=== PATIENT | female | born 1975 | race Caucasian/White ===

== ENCOUNTER 2018-07-29 12:05 | Emergency (ER) | payer OTHER ==
[~2018-07-29] VITALS: Ht 165.1 cm; Wt 107.8 kg
[~2018-07-29 12:05] MED LIST: FERR140T3 PO; IPRA14.76; PNV1CAPS17 PO
[2018-07-29 12:14] VITALS: Ht 165.1 cm; Wt 107.8 kg
[2018-07-29] MEDS ORDERED: ACETAMINOPHEN 500 MG TAB PO STA (13:28)
[2018-07-29] MEDS ORDERED: ALBUTEROL 0.083% (NEB) 2.5 MG/3 ML AMP HHN STA (13:28)
[2018-07-29] MEDS ORDERED: IBUPROFEN 800 MG TAB PO ONE (13:30)
[2018-07-29] MEDS ORDERED: IPRATROPIUM (NEB) 0.5 MG/2.5 ML AMP HHN ONE (13:30)
[2018-07-29] MEDS ORDERED: ALBU8.5H8 INH (14:27)
[2018-07-29] MEDS ORDERED: IBUP-1542 PO (14:27)
[2018-07-29] MEDS ORDERED: ACET500C5 PO (14:27)
[2018-07-29] MEDS ORDERED: PROM6.2515 PO (14:27)
[2018-07-29] MEDS ORDERED: PRED20TA PO (14:27)
[2018-07-29] MEDS ORDERED: BENZ-6 PO (14:27)
[2018-07-29] MEDS ORDERED: DEXAMETHASONE 10 MG/ML 1 ML INJ PO ONE (14:30)
[2018-07-29 14:43] VITALS: BP 126/78; PULSE 102; RESP 20
--- NOTE | 2018-07-29 14:52 | ERD ---
ER Documentation Chief Complaint Chief Complaint Complains of SOB hx of Asthma HPI 43-year-old female presenting with asthma exacerbation and fever. Patient had a productive cough times 2 days. She had a mild runny nose. No sore throats. Has taken Advil this morning but no other medications. Has been using her inhaler. Medical history is asthma. NKDA. Surgical history denies. Social history denies ROS All systems reviewed and are negative except as per history of present illness. Medications Home Meds Active Scripts Acetaminophen* (Tylophen*) 500 Mg Capsule, 1 CAP PO Q6H PRN for PAIN AND OR ELEVATED TEMP, #20 CAP Prov:MAI RAO PA-C 07/29/18 Ibuprofen* (Motrin*) 600 Mg Tab, 600 MG PO Q6, #30 TAB Prov:MAI RAO PA-C 07/29/18 Promethazine Hcl* (Promethazine Hcl* Syrup) 6.25 Mg/5 Ml Syrup, 6.25 MG PO Q6H PRN for COUGH, #100 ML Prov:MAI RAO PA-C 07/29/18 Prednisone* (Prednisone*) 20 Mg Tab, 40 MG PO DAILY for 4 Days, TAB Prov:MAI RAO PA-C 07/29/18 Benzonatate* (Tessalon Perle*) 100 Mg Capsule, 100 MG PO Q8H PRN for COUGH, #30 CAP Prov:MAI RAO PA-C 07/29/18 Albuterol Sulfate* (Proair HFA*) 8.5 Gm Hfa.aer.ad, 2 PUFF INH Q4, #1 INHALER Prov:MAI RAO PA-C 07/29/18 Reported Medications Ferrous Sulfate* (Ferrous Sulfate*) 140 Mg Tablet.er, 140 MG PO BID 08/19/13 Pnv Comb.no58/Iron Bisgly/Fa ( Capsule) 1 Each Capsule, 1 EACH PO DAILY 08/19/13 Albuterol/Ipratropium (Combivent) 14.7 Gm Inha 10/23/09 Allergies Allergies: Coded Allergies: No Known Drug Allergies (Verified Allergy, Mild, 07/29/18) PMhx/Soc History of Surgery: No Anesthesia Reaction: No Hx Neurological Disorder: No Hx Respiratory Disorders: Yes (asthma) Hx Cardiac Disorders: No Hx Psychiatric Problems: No Hx Miscellaneous Medical Probl: No Hx Alcohol Use: No Hx Substance Use: No Hx Tobacco Use: No Smoking Status: Never smoker FmHx Family History: No diabetes, No coronary disease, No other Physical Exam Vitals Vital Signs Date Temp Pulse Resp B/P (MAP) Pulse Ox O2 O2 Flow FiO2 Time Delivery Rate 07/29/18 98.0 102 20 126/78 99 Room Air 14:43 (94) 07/29/18 91 20 97 21 14:07 07/29/18 99.9 13:42 07/29/18 100.1 102 20 159/92 98 12:14 (114) Physical Exam GENERAL: The patient is well-appearing, well-nourished, in no acute distress HEENT: Atraumatic. Conjunctivae are pink. Pupils equal, round, and reactive to light. There is no scleral icterus. Tympanic membranes clear bilaterally. Oropharynx clear. NECK: C-spine is soft and supple. There is no meningismus. There is no cervical lymphadenopathy. CHEST: Clear to auscultation bilaterally. There are no rales, wheezes or rhonchi. HEART: Regular rate and rhythm. No murmurs, clicks, rubs or gallops. Results 24 hrs Current Medications Medications Dose Sig/Mary Ann Start Time Status Last (Trade) Ordered Route PRN Stop Time Admin Dose Reason Admin Albuterol 5 mg ONCE STAT 07/29/18 DC 07/29/18 (Proventil HHN 13:28 14:06 0.083% (Neb)) 07/29/18 13:29 Ipratropium 0.5 mg ONCE ONCE 07/29/18 DC 07/29/18 [place] [facility] 13:30 14:06 (Atrovent 07/29/18 13:31 0.02% (Neb)) 1,000 mg ONCE STAT 07/29/18 DC 07/29/18 Acetaminophen PO 13:28 13:41 (Tylenol 07/29/18 13:29 Tab) Ibuprofen 800 mg ONCE ONCE 07/29/18 DC 07/29/18 (Motrin) PO 13:30 13:41 07/29/18 13:31 10 mg ONCE ONCE 07/29/18 DC 07/29/18 Dexamethasone PO 14:30 14:31 (Decadron) 07/29/18 14:31 Procedures/MDM DIAGNOSTIC IMAGING REPORT Patient: ROSEMARY KENNEDY : 1975 Age: 43 Sex: F MR #: [id number] DOS: 07/29/18 1328 Ordering MD: JANENE RAO PA-C Location: [facility] Room/Bed: PROCEDURE: XR Chest. CLINICAL INDICATION: Cough with fever TECHNIQUE: Single frontal view of the chest was obtained COMPARISON: None FINDINGS: The heart and mediastinum are within normal limits. The lungs are clear. There is no pleural effusion or pneumothorax. RPTAT: AA IMPRESSION: No acute disease. ER course: Ibuprofen and Tylenol given ED. Influenza negative. Albuterol and Atrovent breathing treatment given ED with Decadron. Symptoms improved after breathing treatment. MDM: 43-year-old female presenting with cough. I have low suspicion for respiratory distress or hypoxia. I have low suspicion for meningitis or sepsis. I have low suspicion for bacterial HEENT infection or pneumonia. Patient is discharged with supportive medications and told to follow-up with primary care within 1-2 days for close evaluation. Patient is told if symptoms change or worsen to return immediately to the ER. All questions answered at discharge Departure Diagnosis: Primary Impression: Fever Additional Impression: Asthma Condition: Stable Patient Instructions: Asthma, Fever Control (Adult) Additional Instructions: FOLLOW UP WITH YOUR PRIMARY CARE PHYSICIAN TOMORROW.Return to this facility if you are not improving as expected. MAI RAO PA-C Jul 29, 2018 14:52
== END 2018-07-29 14:44 | disposition home or self-care (01) ==
LOC: FTE 12:05
DX: J45.901 Unspecified asthma with (acute) exacerbation (principal); R50.9 Fever, unspecified
CPT/HCPCS: 71045; 87400; 94664; J1100; Z7610